=== PATIENT | male | born 1985 | race Caucasian/White ===

== ENCOUNTER 2017-09-07 02:07 | Inpatient (IN) | payer OTHER ==
[2017-09-07 02:46] LABS: BASO # 0.1 10^3/uL (0.0-0.2); BASO % 1.1 % (0.0-1.0); EOS # 0.7 10^3/uL (0.0-0.50); EOS % 12.6 % (0.0-3.0); HEMOGLOBIN 14.3 g/dl (14.0-18.0); IMMATURE GRANULOCYTE % 0.2 % (0-3.0); LYMPH % 35.3 % (24.0-44.0); MEAN CORPUSCULAR HEMOGLOBIN 29.9 pg (27.0-33.0); MEAN CORPUSCULAR VOLUME 87.7 fl (80.0-96.0); MONO # 0.6 10^3/uL (0.0-0.8); MONO % 11.4 % (0.0-5.0); NEUTROPHILS # 2.2 10^3/uL (1.8-7.7); NEUTROPHILS % 39.4 % (36.0-66.0); PLATELET COUNT, AUTOMATED 228 10^3/uL (150-450); RED BLOOD COUNT 4.79 10^6/uL (4.30-6.10); RED CELL DISTRIBUTION WIDTH 12.6 % (11.5-14.5); WHITE BLOOD COUNT 5.6 10^3/uL (4.0-10.0)
[2017-09-07 03:07] LABS: OSMOLALITY SERUM 340 MOSM/KG (275-295)
[2017-09-07 03:10] LABS: ACETAMINOPHEN LEVEL < 2.0 UG/ML (10.0-30.0); ALBUMIN 3.9 GM/DL (3.2-5.2); ALBUMIN/GLOBULIN RATIO 1.18 (1.00-1.93); ALKALINE PHOSPHATASE 53 U/L (45-117); ALT/SGPT 19 U/L (12-78); ANION GAP 11 MEQ/L (8-16); AST/SGOT 16 U/L (7-37); BILIRUBIN,DIRECT 0.1 MG/DL (0.0-0.2); BILIRUBIN,TOTAL 0.4 MG/DL (0.2-1.0); BLOOD UREA NITROGEN 12 MG/DL (7-18); CALCIUM LEVEL 8.2 MG/DL (8.5-10.1); CARBON DIOXIDE LEVEL 26 MEQ/L (21-32); CHLORIDE LEVEL 107 MEQ/L (98-107); CPK CREATINE PHOSPHOKINASE 73 U/L (39-308); CREATININE FOR GFR 0.81 MG/DL (0.70-1.30); ETHYL ALCOHOL (ETHANOL) 0.189 % (0.000-0.010); GLOMERULAR FILTRATION RATE > 60.0 (>60); GLUCOSE, FASTING 118 MG/DL (70-100); POTASSIUM SERUM 3.6 MEQ/L (3.5-5.1); SALICYLATE LEVEL < 1.7 MG/DL (5.0-30.0); SODIUM LEVEL 144 MEQ/L (136-145); TOTAL PROTEIN 7.2 GM/DL (6.4-8.2)
[2017-09-07] MEDS: NS 1,000 ML IV (04:04)
[2017-09-07 08:23] LABS: ETHYL ALCOHOL (ETHANOL) 0.124 % (0.000-0.010)
[2017-09-07 08:26] LABS: AMPHETAMINES LEVEL URINE NEGATIVE (NEGATIVE); BARBITURATES URINE NEGATIVE (NEGATIVE); BENZODIAZEPINES URINE NEGATIVE (NEGATIVE); CANNABINOIDS URINE NEGATIVE (NEGATIVE); COCAINE METABOLITE URINE NEGATIVE (NEGATIVE); METHADONE URINE NEGATIVE (NEGATIVE); OPIATES URINE NEGATIVE (NEGATIVE); PHENCYCLIDINE URINE NEGATIVE (NEGATIVE)
[2017-09-07 08:33] LABS: OSMOLALITY SERUM 331 MOSM/KG (275-295)
[2017-09-07] MEDS: ONDANSETRON 4 MG ORAL DISINTEGRATING TAB (S0181) PO (11:47)
[2017-09-07] MEDS ORDERED: ACETAMINOPHEN TAB 650MG DOSE (2X325MG) PO (18:15)
[2017-09-07] MEDS ORDERED: MAALOX 30 ML SUSP *UDC PO (18:15)
[2017-09-07] MEDS ORDERED: LORazepam 2 MG TAB PO (18:15)
[2017-09-07] MEDS ORDERED: MOM 30ML SUSPENSION UDC PO (18:15)
[2017-09-07] MEDS: THIAMINE 100 MG TAB PO (21:42)
[2017-09-07] MEDS: diphenhydrAMINE 50 MG CAP PO (21:43)
[2017-09-08] MEDS: FOLIC ACID 1 MG TAB PO (09:35)
[2017-09-08] MEDS: THIAMINE 100 MG TAB PO ×2 (09:35→21:15)
[2017-09-08] MEDS: MULTIVITAMINS/MINERALS THERAP 1 TAB PO (09:35)
[2017-09-08] MEDS: CitaloPRAM (CeleXA) 20 MG TAB PO (09:36)
[2017-09-08] MEDS: OLANZapine 5 MG TAB PO ×2 (09:37→21:15)
[2017-09-08] MEDS: diphenhydrAMINE 50 MG CAP PO (21:15)
[2017-09-09] MEDS: MULTIVITAMINS/MINERALS THERAP 1 TAB PO (09:03)
[2017-09-09] MEDS: CitaloPRAM (CeleXA) 20 MG TAB PO (09:03)
[2017-09-09] MEDS: THIAMINE 100 MG TAB PO ×2 (09:03→21:26)
[2017-09-09] MEDS: FOLIC ACID 1 MG TAB PO (09:03)
[2017-09-09] MEDS: OLANZapine 5 MG TAB PO ×2 (12:19→19:09)
[2017-09-09] MEDS: diphenhydrAMINE 50 MG CAP PO (21:26)
[2017-09-10] MEDS: MULTIVITAMINS/MINERALS THERAP 1 TAB PO (09:05)
[2017-09-10] MEDS: THIAMINE 100 MG TAB PO (09:05)
[2017-09-10] MEDS: FOLIC ACID 1 MG TAB PO (09:05)
[2017-09-10] MEDS: CitaloPRAM (CeleXA) 20 MG TAB PO (09:05)
[2017-09-10] MEDS: diphenhydrAMINE 50 MG CAP PO (21:22)
[2017-09-11] MEDS: FOLIC ACID 1 MG TAB PO (08:25)
[2017-09-11] MEDS: MULTIVITAMINS/MINERALS THERAP 1 TAB PO (08:25)
[2017-09-11] MEDS: CitaloPRAM (CeleXA) 20 MG TAB PO (08:25)
[2017-09-11] MEDS: OLANZapine 5 MG TAB PO (10:20)
[2017-09-11] MEDS: diphenhydrAMINE 50 MG CAP PO (20:57)
[2017-09-12] MEDS: MULTIVITAMINS/MINERALS THERAP 1 TAB PO (08:05)
[2017-09-12] MEDS: FOLIC ACID 1 MG TAB PO (08:05)
[2017-09-12] MEDS: CitaloPRAM (CeleXA) 20 MG TAB PO (08:05)
[2017-09-12] MEDS: diphenhydrAMINE 50 MG CAP PO (20:15)
[2017-09-13] MEDS: CitaloPRAM (CeleXA) 20 MG TAB PO (09:29)
[2017-09-13] MEDS: FOLIC ACID 1 MG TAB PO (09:29)
[2017-09-13] MEDS: MULTIVITAMINS/MINERALS THERAP 1 TAB PO (09:29)
[2017-09-13] MEDS: diphenhydrAMINE 50 MG CAP PO (21:20)
[2017-09-14] MEDS: CitaloPRAM (CeleXA) 20 MG TAB PO (08:48)
[2017-09-14] MEDS: FOLIC ACID 1 MG TAB PO (08:48)
[2017-09-14] MEDS: MULTIVITAMINS/MINERALS THERAP 1 TAB PO (08:48)
== END 2017-09-14 14:38 | disposition home or self-care (01) | DRG 885 ==
LOC: M ED 02:07 → M ED INP 13:37 → M PSY 15:49
DX: F33.2 Major depressive disorder, recurrent severe without psychotic features (principal); F41.1 Generalized anxiety disorder; F10.10 Alcohol abuse, uncomplicated; Z91.013 Allergy to seafood; Z87.891 Personal history of nicotine dependence